=== PATIENT | male | born 1975 | race Caucasian/White ===

== ENCOUNTER 2022-04-26 22:30 | Emergency (ER) | payer OTHER, MEDICAID ==
[~2022-04-26] VITALS: Ht 172.7 cm; Wt 90.7 kg
[~2022-04-26 22:30] MED LIST: ACTOS45 M1 PO; ALDACTONE25 M1 PO; AMLODIPINE BESYL5 MG PO; ASPIRIN ADULT L81 MG PO; COZAAR100 MG PO; DOK100 M1 PO; HYDRALAZINE10 MG PO; IMDUR SA60 M1 PO; KLONOPIN0.5 MG PO; LEXAPRO20 MG PO; Lopressor25 MG PO; NEPHRO-VITE RX1 TAB PO; NORVASC10 MG PO; RENVELA800 MG PO; SENSIPAR60 MG PO; SENSIPAR90 MG PO; TRAD5TAB1 PO; WELLBUTRIN SR150 MG PO
== END 2022-04-26 23:12 | disposition left against medical advice (07) ==
LOC: ED 22:30
DX: T81.43XA Infection following a procedure, organ and space surgical site, initial encounter (principal); Y92.89 Other specified places as the place of occurrence of the external cause

== ENCOUNTER 2022-05-14 18:58 | Emergency (ER) | payer OTHER, MEDICAID ==
[~2022-05-14] VITALS: Ht 172.7 cm; Wt 92.5 kg
[2022-05-14 22:47] LABS: BASO % 0.4 % (0.0-1.0); EOS # 0.1 10*3/uL (0.0-0.4); EOS % 2.1 % (1.0-4.0); HEMATOCRIT 36.1 % (42.0-52.0); LYMPH # 0.2 10*3/uL (1.3-4.4); MEAN CELL VOLUME 93.3 fl (80.0-94.0); MEAN CORPUSCULAR HGB 29.2 pg (27.0-31.0); MEAN CORPUSCULAR HGB CONC 31.3 g/dl (33.0-37.0); MONO # 0.3 10*3/uL (0.1-1.0); MONO % 10.9 % (3.0-9.0); NEUT # 1.8 10*3/uL (2.3-7.9); NEUT % 76.2 % (47.0-73.0); PLATELET COUNT AUTOMATED 113 10*3/uL (130-400); RED BLOOD COUNT 3.87 10*6/uL (4.50-5.90); RED CELL DISTRI WIDTH 15.9 % (0-14.5); WHITE BLOOD COUNT 2.4 10*3/uL (4.8-10.8)
[2022-05-14 23:07] LABS: CREATININE 2.07 mg/dL (0.70-1.30); POTASSIUM 3.5 mmol/L (3.5-5.1)
[2022-05-14 23:08] LABS: TOTAL PROTEIN 6.5 gm/dL (6.4-8.2)
== END 2022-05-14 23:50 | disposition home or self-care (01) ==
LOC: ED 18:58
PROVIDERS: Emergency Medicine
DX: Z00.00 Encounter for general adult medical examination without abnormal findings (principal); Z98.890 Other specified postprocedural states; Z79.82 Long term (current) use of aspirin; Z79.899 Other long term (current) drug therapy; Z88.2 Allergy status to sulfonamides; Z88.1 Allergy status to other antibiotic agents

== ENCOUNTER 2023-01-05 02:46 | Emergency (ER) | payer OTHER, MEDICAID ==
[~2023-01-05] VITALS: Ht 172.7 cm; Wt 101.6 kg
[2023-01-05] MEDS ORDERED: METHOCARBAMOL750 M1 PO (04:10)
== END 2023-01-05 04:32 | disposition home or self-care (01) ==
LOC: ED 02:46
DX: S39.012A Strain of muscle, fascia and tendon of lower back, initial encounter (principal); E11.22 Type 2 diabetes mellitus with diabetic chronic kidney disease; I13.2 Hypertensive heart and chronic kidney disease with heart failure and with stage 5 chronic kidney disease, or end stage renal disease; I50.33 Acute on chronic diastolic (congestive) heart failure; N18.6 End stage renal disease; E66.01 Morbid (severe) obesity due to excess calories; E78.1 Pure hyperglyceridemia; Z94.0 Kidney transplant status; Z88.8 Allergy status to other drugs, medicaments and biological substances; Z88.2 Allergy status to sulfonamides; Z79.899 Other long term (current) drug therapy; Z79.82 Long term (current) use of aspirin; Z68.43 Body mass index [BMI] 50.0-59.9, adult; Z98.890 Other specified postprocedural states; Z90.49 Acquired absence of other specified parts of digestive tract; X58.XXXA Exposure to other specified factors, initial encounter; Y93.89 Activity, other specified; Y92.89 Other specified places as the place of occurrence of the external cause; Y99.8 Other external cause status

== ENCOUNTER 2024-02-21 15:14 | Emergency (ER) | payer OTHER ==
[~2024-02-21] VITALS: Wt 108.9 kg
[~2024-02-21 15:14] MED LIST changes: +METHOCARBAMOL750 M1 PO
[2024-02-21 16:07] LABS: BASO % 0.3 % (0.0-1.0); EOS # 0.1 10*3/uL (0.0-0.4); EOS % 1.1 % (1.0-4.0); LYMPH # 0.3 10*3/uL (1.3-4.4); LYMPH % 2.7 % (27.0-41.0); MEAN CELL VOLUME 88.7 fl (80.0-94.0); MEAN CORPUSCULAR HGB 31.2 pg (27.0-31.0); MEAN CORPUSCULAR HGB CONC 35.2 g/dl (33.0-37.0); MEAN PLATELET VOLUME 11.1 fl (9.6-12.3); MONO # 0.7 10*3/uL (0.1-1.0); MONO % 5.9 % (3.0-9.0); NEUT # 10.2 10*3/uL (2.3-7.9); NEUT % 89.4 % (47.0-73.0); PLATELET COUNT AUTOMATED 104 10*3/uL (130-400); RED BLOOD COUNT 3.72 10*6/uL (4.50-5.90); RED CELL DISTRI WIDTH 15.1 % (0-14.5); WHITE BLOOD COUNT 11.4 10*3/uL (4.8-10.8)
[2024-02-21 16:41] LABS: ALKALINE PHOSPHATASE 79 U/L (46-116); CHLORIDE 111 mmol/L (98-107); SGPT/ALT 20 U/L (5-49); TOTAL PROTEIN 6.5 gm/dL (6.0-8.0)
[2024-02-21 16:44] LABS: BUN 153 mg/dl (9-23)
[2024-02-21 16:47] LABS: POTASSIUM 2.3 mmol/L (3.4-5.1)
[2024-02-21] MEDS ORDERED: POTASSIUM CHLORIDE 20 MEQ TAB PO ONE (17:05)
[2024-02-21] MEDS ORDERED: Metoprolol Tartrate 5 MG/5 ML VIAL IV ONE ×2 (17:25→19:50)
[2024-02-21] MEDS ORDERED: POTASSIUM CHLORIDE IN WATER 100 ML IV SCH (18:00)
[2024-02-21] MEDS ORDERED: SODIUM CHLORIDE 0.9% 1,000 ML IV ONE (18:37)
[2024-02-21 19:11] LABS: ABG BASE EXCESS -19.8 mmol/L (-2.0-2.0); ARTERIAL BLOOD GAS PH 7.211 (7.35-7.45)
[2024-02-21] MEDS ORDERED: METOPROLOL SUCCINATE XR 25 MG TAB PO ONE (19:40)
[2024-02-21 19:43] LABS: BILIRUBIN Negative (Negative); BLOOD 3+ (Negative); CLARITY Cloudy (Clear); COLOR Orange (Yellow); GLUCOSE Negative (Negative); KETONE Negative (Negative); LEUKO ESTERASE Trace (Negative); NITRITE Negative (Negative); PH 5.5 (4.5-8.0); UROBILINOGEN 0.2 E.U./dl (0.0-1.0)
[2024-02-21 19:51] LABS: RBC 51-100 rbc/hpf (0-2)
[2024-02-21 19:52] LABS: BACTERIA 2+; MUCOUS TRACE
[2024-02-21] MEDS ORDERED: Ceftriaxone Sodium 1 GM/10 ML SYR IV ONE (20:00)
[2024-02-21] MEDS ORDERED: CALCIUM GLUC IN NACL, ISO-OSM 100 ML IV SCH (20:00)
== END 2024-02-21 19:47 | disposition short-term general hospital (02) ==
LOC: ED 15:14
PROVIDERS: Nurse Practitioner Family
DX: E11.22 Type 2 diabetes mellitus with diabetic chronic kidney disease (principal); Z20.822 Contact with and (suspected) exposure to COVID-19; I13.2 Hypertensive heart and chronic kidney disease with heart failure and with stage 5 chronic kidney disease, or end stage renal disease; N18.6 End stage renal disease; I50.9 Heart failure, unspecified; I48.20 Chronic atrial fibrillation, unspecified; E87.6 Hypokalemia; E83.51 Hypocalcemia; E87.20 Acidosis, unspecified; N17.9 Acute kidney failure, unspecified; D64.9 Anemia, unspecified; E83.41 Hypermagnesemia; Z88.8 Allergy status to other drugs, medicaments and biological substances; Z88.2 Allergy status to sulfonamides; Z95.5 Presence of coronary angioplasty implant and graft; Z98.890 Other specified postprocedural states; Z90.49 Acquired absence of other specified parts of digestive tract

== ENCOUNTER 2024-12-08 23:12 | Emergency (ER) | payer OTHER ==
[~2024-12-08] VITALS: Ht 172.7 cm; Wt 118.2 kg
== END 2024-12-08 23:40 | disposition home or self-care (01) ==
LOC: ED 23:12
DX: Z04.89 Encounter for examination and observation for other specified reasons (principal); I13.0 Hypertensive heart and chronic kidney disease with heart failure and stage 1 through stage 4 chronic kidney disease, or unspecified chronic kidney disease; E11.22 Type 2 diabetes mellitus with diabetic chronic kidney disease; N18.9 Chronic kidney disease, unspecified; I50.9 Heart failure, unspecified; Z79.82 Long term (current) use of aspirin; Z79.84 Long term (current) use of oral hypoglycemic drugs; Z79.899 Other long term (current) drug therapy; Z88.1 Allergy status to other antibiotic agents; Z88.2 Allergy status to sulfonamides; Z88.8 Allergy status to other drugs, medicaments and biological substances; Z98.890 Other specified postprocedural states